=== PATIENT | male | born 1965 | race Hispanic/Latino ===

== ENCOUNTER 2024-11-30 10:49 | Inpatient (IN) | payer OTHER ==
[~2024-11-30] VITALS: Ht 175.3 cm; Wt 93.0 kg
[2024-11-30] VITALS (9 sets, daily range): BP systolic 109–161; BP diastolic 67–98; PULSE 54–68; RESP 16–20; TEMP 96.3–98.2; O2SAT 96–100
[~2024-11-30 10:49] MED LIST: KETOROLAC TROME10 MG PEG; LOSARTAN POTASS25 MG PO; ONDANSETRON ODT4 MG SL
[2024-11-30] MEDS: ONDANSETRON HCL INJ 2MG/ML 2ML 2 MG/ML VIAL IV PRN (13:21)
[2024-11-30] MEDS: Morphine 4mg INJECTION 4 MG/ML INJ IV PRN (13:21)
[2024-11-30] MEDS: SODIUM CHLORIDE 0.9% 1000ML 1,000 ML IV SCH ×2 (13:21→17:57)
[2024-11-30] MEDS ORDERED: FENTANYL CITRATE/PF 100MCG/2 ML INJ ONE (15:45)
[2024-11-30] MEDS ORDERED: LIDOCAINE HCL 2% LOCAL INJ 5 ML SDV VIAL INJ ONE (15:45)
[2024-11-30] MEDS ORDERED: MIDAZOLAM HCL 2 MG/2 ML VIAL ONE (15:45)
[2024-11-30] MEDS ORDERED: PROPOFOL IV EMULSION 10 MG/ML 20 ML VIAL ONE (15:45)
[2024-11-30] MEDS ORDERED: ONDANSETRON HCL INJ 2MG/ML 2ML 2 MG/ML VIAL ONE (15:45)
[2024-11-30] MEDS ORDERED: DEXAMETHASONE SOD PHOS INJ 4 MG/ML SDV ONE ×2 (15:54)
[2024-11-30] MEDS ORDERED: PROPOFOL IV EMULSION 50 ML IV ONE (16:30)
[2024-11-30] MEDS ORDERED: DIPHENHYDRAMINE HCL 25 MG CAP PO PRN (17:30)
[2024-11-30] MEDS ORDERED: ACETAMINOPHEN 1000 MG/100 ML IV PRN (17:30)
[2024-11-30] MEDS: ACETAMINOPHEN/CODEINE 300MG - 30MG TAB PO PRN (20:56)
[2024-12-01] VITALS (9 sets, daily range): BP systolic 124–150; BP diastolic 71–97; PULSE 54–79; RESP 18–22; TEMP 97.2–98.3; O2SAT 98–100
[2024-12-01 07:48] LABS: BASOPHILS % 0.1 % (0.0-1.0); HEMATOCRIT 42.3 % (38.2-49.6); HEMOGLOBIN 14.8 g/dL (14.0-18.0); LYMPHOCYTES % 10.4 % (18.0-39.1); MEAN CORPUSCULAR HEMOGLOBIN 32.4 pg (28-32); MEAN CORPUSCULAR VOLUME 92.6 fL (81-99); MONOCYTES # (AUTO) 0.3 (0.2-0.8); MONOCYTES % 2.8 % (4.4-11.3); NEUTROPHILS # (AUTO) 8.1 (2.1-6.9); NEUTROPHILS % 86.4 % (38.7-80.0); PLATELET COUNT 186 x10e3/uL (140-360); RED BLOOD COUNT 4.57 x10e6/uL (4.3-5.7); RED CELL DISTRIBUTION WIDTH 12.7 % (11.7-14.4); WHITE BLOOD COUNT 9.33 x10e3/uL (4.8-10.8)
[2024-12-01 08:05] LABS: CALCIUM 8.4 mg/dL (8.4-10.2); CREATININE, SERUM 0.68 mg/dL (0.72-1.25)
[2024-12-01] MEDS: PHENAZOPYRIDINE HCL 100 MG TAB PO PRN (08:41)
[2024-12-01] MEDS: ONDANSETRON HCL INJ 2MG/ML 2ML 2 MG/ML VIAL IV PRN (20:19)
[2024-12-02] VITALS: BP_SYST 129; BP_SYST 130; BP_DIAS 75; BP_DIAS 79; PULSE 64; PULSE 65; PULSE 69; RESP 20; TEMP 98.4; TEMP 98.5; TEMP 98.6; O2SAT 99
[2024-12-02 06:20] VITALS: PULSE 71; RESP 22; O2SAT 97
[2024-12-02 08:04] VITALS: BP 131/77; PULSE 67; RESP 18; TEMP 98.6; O2SAT 100
[2024-12-02 08:05] VITALS: BP 131/77; PULSE 67; RESP 18; TEMP 98.6; O2SAT 100
[2024-12-02 13:10] LABS: CALCIUM 8.5 mg/dL (8.7-10.2)
== END 2024-12-02 11:50 | disposition home or self-care (01) | DRG 661 ==
LOC: ER 11:00 → ERHOLD 12:13 → MED/SURG3 14:17
PROVIDERS: ADMIT Internal Medicine; ATTEND Internal Medicine
PROC: 0T7D8DZ Dilation of Urethra with Intraluminal Device, Via Natural or Artificial Opening Endoscopic (ICD-10-PCS; 2024-11-30)
PROC: BT131ZZ Fluoroscopy of Bilateral Kidneys using Low Osmolar Contrast (ICD-10-PCS; 2024-11-30)
PROC: BT161ZZ Fluoroscopy of Right Ureter using Low Osmolar Contrast (ICD-10-PCS; 2024-11-30)
PROC: BT171ZZ Fluoroscopy of Left Ureter using Low Osmolar Contrast (ICD-10-PCS; 2024-11-30)
PROC: 0T778DZ Dilation of Left Ureter with Intraluminal Device, Via Natural or Artificial Opening Endoscopic (ICD-10-PCS; principal; 2024-11-30 15:54)
PROC: 0TF4XZZ Fragmentation in Left Kidney Pelvis, External Approach (ICD-10-PCS; 2024-11-30 15:54)
DX: N13.2 Hydronephrosis with renal and ureteral calculous obstruction (principal); N23 Unspecified renal colic; N13.70 Vesicoureteral-reflux, unspecified; E66.9 Obesity, unspecified; Z68.30 Body mass index [BMI] 30.0-30.9, adult; N35.916 Unspecified urethral stricture, male, overlapping sites
CPT/HCPCS: 36415; 50590; 74018; 80048; 83970; 84550; 85025; 94799; 99284; C1758; C1769; C2617; J0696; J1100; J2003; J2250; J2270; J2405; J7030

== ENCOUNTER 2025-01-25 06:31 | Inpatient (IN) | payer OTHER ==
[~2025-01-25] VITALS: Ht 175.3 cm; Wt 93.0 kg
[2025-01-25 06:35] VITALS: TEMP 98.2
[2025-01-25 06:59] LABS: BASOPHILS % 0.5 % (0.0-1.0); EOSINOPHILS % 3.0 % (0.0-6.0); LYMPHOCYTES % 28.3 % (18.0-39.1); MONOCYTES % 5.8 % (4.4-11.3); NEUTROPHILS % 62.1 % (38.7-80.0); RED CELL DISTRIBUTION WIDTH 12.5 % (11.7-14.4)
[2025-01-25] MEDS: Morphine 4mg INJECTION 4 MG/ML INJ IV STA (07:12)
[2025-01-25] MEDS: ONDANSETRON HCL INJ 2MG/ML 2ML 2 MG/ML VIAL IV STA (07:12)
[2025-01-25] MEDS: SODIUM CHLORIDE 0.9% 1000ML 1,000 ML IV STA (07:13)
[2025-01-25] MEDS: KETOROLAC TROMETHAMINE 30 MG/ML VIAL IV STA (07:13)
[2025-01-25 07:18] LABS: INR 0.86
[2025-01-25 07:24] LABS: EST GLOMERULAR FILTRATION RATE 105.0 ML/MIN (>=60)
[2025-01-25 07:31] LABS: LEUKOCYTE ESTERASE ,URINE SMALL (NEGATIVE); PROTEIN,URINE DIPSTICK 2+ (NEGATIVE); URINE UROBILINOGEN 0.2 mg/dL (0.2 - 1)
[2025-01-25 07:50] LABS: EPITHELIAL CELLS,URINE MODERATE /LPF; WBC,URINE (MAN) >50 /HPF (0-5)
[2025-01-25] MEDS ORDERED: VANCOMYCIN 1.25GM/250 ML (PEG) 250 ML IV ONE (09:00)
[2025-01-25] MEDS ORDERED: Morphine 4mg INJECTION 4 MG/ML INJ IV PRN (09:00)
[2025-01-25] MEDS ORDERED: ONDANSETRON HCL INJ 2MG/ML 2ML 2 MG/ML VIAL IV PRN (09:00)
[2025-01-25] MEDS: VANCOMYCIN HCL 1.25 GM in SODIUM CHLORIDE 0.9% 250ML 250 ML IV ONE (10:21)
[2025-01-25] MEDS: SODIUM CHLORIDE 0.9% 1000ML 1,000 ML IV SCH (10:21)
[2025-01-25] MEDS ORDERED: HYDROMORPHONE 1MG/1ML INJ IV PRN (10:45)
[2025-01-25] MEDS ORDERED: HYDRALAZINE HCL 20 MG/ML VIAL IV PRN (10:45)
[2025-01-25 12:28] VITALS: PULSE 48; RESP 20
[2025-01-25] MEDS: KETOROLAC TROMETHAMINE 30 MG/ML VIAL IV PRN (13:23)
[2025-01-25] MEDS ORDERED: LIDOCAINE HCL 2% LOCAL INJ 5 ML SDV VIAL INJ ONE (15:53)
[2025-01-25] MEDS ORDERED: SEVOFLURANE INHAL SOLN 250 ML PEN BTL ONE (15:53)
[2025-01-25] MEDS ORDERED: FENTANYL CITRATE/PF 100MCG/2 ML INJ ONE (15:53)
[2025-01-25] MEDS ORDERED: PROPOFOL IV EMULSION 10 MG/ML 20 ML VIAL ONE (15:53)
[2025-01-25] MEDS ORDERED: ACETAMINOPHEN 1000 MG/100 ML 100 ML IV ONE (15:58)
[2025-01-25] MEDS ORDERED: ONDANSETRON HCL INJ 2MG/ML 2ML 2 MG/ML VIAL ONE (16:35)
[2025-01-25] MEDS ORDERED: DEXAMETHASONE SOD PHOS INJ 4 MG/ML SDV ONE (16:35)
[2025-01-25] MEDS ORDERED: EPHEDRINE SULFATE INJ 50 MG/ML VIAL ONE (16:44)
[2025-01-25] MEDS: HYDRALAZINE HCL 20 MG/ML VIAL ONE (17:55)
[2025-01-25 20:00] VITALS: BP 137/82; PULSE 68; RESP 20; TEMP 97.8; O2SAT 99
[2025-01-25 20:49] VITALS: BP 137/82; PULSE 68; RESP 20; TEMP 97.8; O2SAT 99
[2025-01-25] MEDS: PIPERACILLIN/TAZOBACTAM 3.375 GM VIAL ONE (21:52)
[2025-01-25] MEDS: HYDROCODONE/APAP 10MG-325MG TAB PO PRN (23:03)
[2025-01-26] VITALS: BP 132/78; PULSE 60; RESP 20; TEMP 98.1; O2SAT 99
[2025-01-26 04:00] VITALS: BP 125/76; PULSE 60; RESP 20; TEMP 97.9; O2SAT 100
[2025-01-26 06:48] LABS: BASOPHILS % 0.3 % (0.0-1.0); EOSINOPHILS % 0.2 % (0.0-6.0); LYMPHOCYTES % 12.1 % (18.0-39.1); MONOCYTES % 2.6 % (4.4-11.3); NEUTROPHILS % 84.0 % (38.7-80.0); RED CELL DISTRIBUTION WIDTH 12.4 % (11.7-14.4)
[2025-01-26 07:39] VITALS: BP 127/69; PULSE 60; RESP 17; TEMP 97.8; O2SAT 100
[2025-01-26 07:51] LABS: EST GLOMERULAR FILTRATION RATE 108.0 ML/MIN (>=60)
== END 2025-01-26 10:35 | disposition home or self-care (01) | DRG 699 ==
LOC: ER 06:38 → ERHOLD 09:02 → MED/SURG 15:00
PROVIDERS: ADMIT Internal Medicine; ATTEND Internal Medicine
PROC: 0TC18ZZ Extirpation of Matter from Left Kidney, Via Natural or Artificial Opening Endoscopic (ICD-10-PCS; 2025-01-25)
PROC: BT141ZZ Fluoroscopy of Kidneys, Ureters and Bladder using Low Osmolar Contrast (ICD-10-PCS; 2025-01-25)
PROC: 0DJD7ZZ Inspection of Lower Intestinal Tract, Via Natural or Artificial Opening (ICD-10-PCS; 2025-01-25)
PROC: 0TP98DZ Removal of Intraluminal Device from Ureter, Via Natural or Artificial Opening Endoscopic (ICD-10-PCS; principal; 2025-01-25 16:30)
PROC: 0T7D8ZZ Dilation of Urethra, Via Natural or Artificial Opening Endoscopic (ICD-10-PCS; 2025-01-25 16:30)
DX: T83.593A Infection and inflammatory reaction due to other urinary stents, initial encounter (principal); I69.354 Hemiplegia and hemiparesis following cerebral infarction affecting left non-dominant side; N13.6 Pyonephrosis; E66.9 Obesity, unspecified; Z68.30 Body mass index [BMI] 30.0-30.9, adult; N35.912 Unspecified bulbous urethral stricture, male; N23 Unspecified renal colic; N13.70 Vesicoureteral-reflux, unspecified; Y83.1 Surgical operation with implant of artificial internal device as the cause of abnormal reaction of the patient, or of later complication, without mention of misadventure at the time of the procedure; Z96.0 Presence of urogenital implants
CPT/HCPCS: 36415; 70450; 74176; 74420; 80053; 81001; 85025; 85610; 85730; 87086; 88300; 99284; C1758; C1769; G0378; J0360; J1100; J1885; J2003; J2270; J2405; J2470; J2543; J7030; J7050